=== PATIENT | male | born 2000 | race Two or more races ===

== ENCOUNTER 2022-07-14 01:33 | Emergency (ER) | payer BC ==
[~2022-07-14] VITALS: Ht 175.3 cm; Wt 114.0 kg
[2022-07-14 01:44] VITALS: BP 140/75
[2022-07-14] MEDS ORDERED: CIP03OS RIGHTEYE (04:17)
== END 2022-07-14 04:47 | disposition home or self-care (01) ==
LOC: ER 01:33
DX: H01.002 Unspecified blepharitis right lower eyelid (principal); E78.5 Hyperlipidemia, unspecified